=== PATIENT | male | born 1960 | race Hispanic/Latino ===

== ENCOUNTER → 2024-02-29 | Outpatient (REF) | payer MEDICARE, OTHER ==
[2024-02-29 12:51] LABS: BASOPHILS # (AUTO) 0.1 (0.0-0.1); BASOPHILS % 1.4 % (0.0-1.0); EOSINOPHILS # (AUTO) 0.1 (0.0-0.4); EOSINOPHILS % 0.9 % (0.0-6.0); HEMATOCRIT 37.5 % (38.2-49.6); HEMOGLOBIN 11.8 g/dL (14.0-18.0); LYMPHOCYTES # (AUTO) 1.6 (1.0-3.2); LYMPHOCYTES % 23.5 % (18.0-39.1); MEAN CORPUSCULAR HEMOGLOBIN 33.3 pg (28-32); MEAN CORPUSCULAR HGB CONC 31.5 g/dL (31-35); MEAN CORPUSCULAR VOLUME 105.9 fL (81-99); MONOCYTES # (AUTO) 0.7 (0.2-0.8); MONOCYTES % 9.8 % (4.4-11.3); NEUTROPHILS # (AUTO) 4.3 (2.1-6.9); NEUTROPHILS % 64.2 % (38.7-80.0); PLATELET COUNT 120 x10e3/uL (140-360); RED BLOOD COUNT 3.54 x10e6/uL (4.3-5.7); RED CELL DISTRIBUTION WIDTH 17.3 % (11.7-14.4); WHITE BLOOD COUNT 6.65 x10e3/uL (4.8-10.8)
[2024-02-29 13:11] LABS: INR 1.17; PROTHROMBIN TIME 15.6 seconds (11.9-14.5)
[2024-02-29 14:39] LABS: BODY FLUID TYPE PERITONEAL
[2024-02-29 14:40] LABS: BODY FLUID APPEARANCE CLOUDY; BODY FLUID COLOR RED
[2024-02-29 15:25] LABS: WBC,BODY FLUID 339 cells/uL
[2024-02-29 15:26] LABS: RBC,BODY FLUID 11000 cells/uL
[2024-02-29 17:08] LABS: LYMPHOCYTES,BODY FLUID 40 %; MONO/MACROPHG,BODY FLUID 42 %; NEUTROPHILS,BODY FLUID 3 %; OTHER CELLS,BODY FLUID 15 %; TOTAL CELLS COUNTED (DIFF) 100
== END ==
LOC: US 12:11
PROVIDERS: ATTEND Internal Medicine
DX: R18.8 Other ascites (principal); N18.6 End stage renal disease; Z99.2 Dependence on renal dialysis
CPT/HCPCS: 36415; 49083; 82040; 84157; 85025; 85610; 85730; 87070; 87205; 88112; 88305; 89051